=== PATIENT | male | born 1985 | race African-American/Black ===

== ENCOUNTER 2016-08-25 22:44 | Emergency (ER) | payer SELFPAY ==
[~2016-08-25 22:44] MED LIST: NO MEDICATIONS
== END 2016-08-25 23:35 | disposition home or self-care (01) ==
LOC: SED 22:44
DX: T15.02XA Foreign body in cornea, left eye, initial encounter (principal); Z85.89 Personal history of malignant neoplasm of other organs and systems
CPT/HCPCS: 99283